=== PATIENT | female | born 1995 | race Asian ===

== ENCOUNTER 2017-09-21 06:00 | Inpatient (IN) | payer OTHER, MEDICAID ==
[2017-09-21] MEDS ORDERED: ceFAZolin 2 GM PREMIX (*) 2 GM/50 ML BAG IVPB ONE (06:51)
[2017-09-21] MEDS ORDERED: Buffered Lidocaine 0.9% SYRIN* 5 ML/SYR SYRINGE INTRADERM ONE (06:58)
[2017-09-21] MEDS ORDERED: Sodium Citrate/Citric Acid* 15 ML UDC PO ONE (06:58)
[2017-09-21] MEDS ORDERED: OXYTOCIN* 10 UNITS/ML 1 ML VIAL ONE (07:45)
[2017-09-21] MEDS ORDERED: Phenylephrine IV* 40 MCG/ML 10 ML SYRINGE ONE (07:45)
[2017-09-21] MEDS ORDERED: Morphine PF AMP (0.5MG/ML)* 5 MG/10 ML AMP ONE (07:46)
[2017-09-21] MEDS ORDERED: Phenylephrine INJ* 10 MG/ML 1 ML VIAL (10 MG) ONE (07:47)
[2017-09-21] MEDS ORDERED: Ondansetron INJ* 2 MG/ML VIAL IV PRN ×2 (08:29→08:31)
[2017-09-21] MEDS ORDERED: fentaNYL* 50 MCG/ML 2 ML VIAL (100 MCG VIAL) IV PRN (08:29)
[2017-09-21] MEDS ORDERED: oxyCODONE/Acetamin 5/325 MG* TAB PO PRN ×2 (08:31)
[2017-09-21] MEDS ORDERED: Naloxone* 0.4 MG/ML 1 ML VIAL IV PRN (08:31)
[2017-09-21] MEDS ORDERED: Ondansetron INJ* 2 MG/ML VIAL ONE (08:39)
[2017-09-21] MEDS ORDERED: fentaNYL* 50 MCG/ML 2 ML VIAL (100 MCG VIAL) ONE (08:55)
[2017-09-21] MEDS ORDERED: Ketorolac INJ* 30 MG/ML 1 ML VIAL ONE (09:02)
[2017-09-21] MEDS ORDERED: Dibucaine 1% 28.35 GM TUBE PR PRN (10:30)
[2017-09-21] MEDS ORDERED: Glycerin ADULT SUPP PR PRN (10:30)
[2017-09-21] MEDS ORDERED: Zolpidem TAB* 5 MG PO PRN (10:30)
[2017-09-21] MEDS ORDERED: Witch Hazel PAD* JAR TOPICAL PRN (10:30)
[2017-09-21] MEDS: Simethicone TAB* 80 MG TAB.CHEW PO SCH ×3 (13:07→22:27)
[2017-09-21] MEDS: Docusate CAP* 100 MG PO SCH ×2 (13:57→22:12)
[2017-09-21] MEDS: Ketorolac INJ* 30 MG/ML 1 ML VIAL IV PRN ×2 (15:20→22:12)
[2017-09-22] MEDS ORDERED: Acetaminophen TAB* 325 MG PO PRN (00:10)
[2017-09-22] MEDS: Ibuprofen TAB* 600 MG PO PRN ×3 (04:02→17:25)
[2017-09-22] MEDS: oxyCODONE/Acetamin 5/325 MG* TAB PO PRN ×5 (04:03→22:39)
[2017-09-22] MEDS: Docusate CAP* 100 MG PO SCH ×3 (08:24→20:20)
[2017-09-22] MEDS: Simethicone TAB* 80 MG TAB.CHEW PO SCH ×4 (08:24→20:19)
[2017-09-22 08:31] LABS: ABS Basophils 0 10^3/ul (0-0.2); ABS Eosinophils 0 10^3/ul (0-0.6); ABS Lymphocytes 1.4 10^3/ul (1.0-4.8); ABS Monocytes 0.7 10^3/ul (0-0.8); ABS Neutrophils 6.8 10^3/ul (1.5-7.7); ABS Nucleated RBC 0 10^3/ul; Eosinophil % 0.1 % (0-6); Hematocrit 31 % (35-47); Hemoglobin 10.5 g/dl (12.0-16.0); Lymphocyte % 15.7 % (25-47); Mean Corpuscular HGB Conc 34 g/dl (31-36); Mean Corpuscular Hemoglobin 31 pg (27-31); Mean Corpuscular Volume 92 fL (80-97); Mean Platelet Volume 8 um3 (7.4-10.4); Nucleated Red Blood Cells % 0; Platelet Count 163 10^3/ul (150-450); Red Blood Count 3.39 10^6/ul (4.0-5.4); Red Cell Distribution Width 14 % (10.5-15)
[2017-09-22] MEDS: Ferrous Gluconate TAB* 324 MG TAB PO SCH (10:15)
--- NOTE | 2017-09-22 13:37 | OP ---
OPERATIVE REPORT: DATE OF OPERATION: 09/21/17 DATE OF : 89 SURGEON: Vani Torres MD DIRECTOR PROFESSIONAL SERVICES: Shani Rubio CNM. ANESTHESIA: Spinal. PRE-OP DIAGNOSIS: Intrauterine gestation at 39 and 5 weeks gestational age. Prior section x2. Breech presentation. Possible uterine anomaly. POST-OP DIAGNOSIS: Intrauterine gestation at 39 and 5 weeks gestational age. Prior section x2. Breech presentation. 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 OPERATIVE PROCEDURE: Repeat section. Extensive lysis of adhesions. ESTIMATED BLOOD LOSS: 800 mL. FLUIDS: Crystalloid. DRAINS: Feliz catheter. SPECIMENS: None. FINDINGS: Female infant. Apgars 9 and 9, weight 7 pounds 2 ounces. Normal appearing placenta. Normal ovaries and tubes. in the right uterus with a second rudimentary uterus on the left side of the uterus. Extensive scarring through all layers of tissue. COUNTS: Were all correct. DESCRIPTION OF PROCEDURE: After informed consent was signed, the patient was taken to the operating room where she was prepped and draped in the dorsal supine position. Feliz catheter was inserted into her bladder. SCDs were placed on her legs. Anesthesia was found to be adequate. A Pfannenstiel skin incision was made with a scalpel and the scar from the prior incision was excised. Incision was then carried down to the underlying layer of fascia with a combination of sharp dissection with Lambert scissors and Bovie cautery. There was extensive scarring to these layers. The fascia was incised on either side of the midline and then incision was extended laterally with sharp dissection with the Lambert scissors. The inferior edge of the fascial incision was grasped with Gregory clamps, tended up, and dissected out with sharp dissection. Then the superior edge of the fascial incision was grasped with Gregory clamps, tended up, and dissected down with sharp dissection. The peritoneum was entered with blunt dissection. The incision was further extended with a combination of sharp and blunt dissection, taking care to avoid injury to bowel or bladder. A bladder flap was then created in the vesicouterine peritoneum with the Metzenbaum scissors. The bladder blade was inserted. A transverse incision was made in the uterus with the scalpel. The uterine incision was extended superior and inferiorly with blunt pressure. Infant's feet were grasped and delivered, followed by the rest of the body. Arms were rotated inwardly and head was delivered in a flexed position. After 30 seconds, the cord was clamped x2 and cut the baby was handed to the circus hand. Cord blood was collected. The uterus was cleared of clots and debris. The uterine incision was then closed with 0-Vicryl in a running locked fashion with the second layer of suture imbricating the first. The abdomen was irrigated, the previously noted findings were seen. Some cautery was used on the uterus and around the edges of the incision to create good hemostasis. The peritoneum was then closed with 3-0 Vicryl in a running unlocked fashion. Good hemostasis was also noted in the next layer and the fascia was closed with 0 Vicryl in a running unlocked fashion. The subcuticular layer was irrigated. Good hemostasis was found and 4 interrupted sutures of 3-0 Chromic were placed. The skin was then placed with 4-0 Monocryl in a running subcuticular fashion. Mastisol and Steri-Strips were placed. The patient was cleaned, moved to the stretcher and taken to the recovery room in stable condition. [id number]/[facility] #: [id number] SPENCER
[2017-09-23] MEDS: Ibuprofen TAB* 600 MG PO PRN ×4 (00:09→23:21)
[2017-09-23] MEDS: oxyCODONE/Acetamin 5/325 MG* TAB PO PRN ×4 (04:17→23:21)
[2017-09-23] MEDS: Docusate CAP* 100 MG PO SCH ×3 (09:20→20:49)
[2017-09-23] MEDS: Simethicone TAB* 80 MG TAB.CHEW PO SCH ×4 (09:20→20:49)
[2017-09-23] MEDS: Ferrous Gluconate TAB* 324 MG TAB PO SCH (10:23)
[2017-09-24] MEDS: Docusate CAP* 100 MG PO SCH (07:44)
[2017-09-24] MEDS: Simethicone TAB* 80 MG TAB.CHEW PO SCH ×2 (07:44→12:38)
[2017-09-24] MEDS: oxyCODONE/Acetamin 5/325 MG* TAB PO PRN ×2 (07:44→12:38)
[2017-09-24] MEDS: Ibuprofen TAB* 600 MG PO PRN (07:45)
[2017-09-24 07:52] VITALS: BP 109/63
== END 2017-09-24 12:40 | disposition home or self-care (01) | DRG 766 ==
LOC: MCHOB 06:00
PROVIDERS: ADMIT Obstetrics & Gynecology; ATTEND Obstetrics & Gynecology
PROC: 4A1HXCZ Monitoring of Products of Conception, Cardiac Rate, External Approach (ICD-10-PCS; 2017-09-21)
PROC: 10D00Z1 Extraction of Products of Conception, Low, Open Approach (ICD-10-PCS; principal; 2017-09-21 07:45)
DX: O34.211 Maternal care for low transverse scar from previous cesarean delivery (principal); N85.8 Other specified noninflammatory disorders of uterus; O32.1XX0 Maternal care for breech presentation, not applicable or unspecified; Z37.0 Single live birth; O75.89 Other specified complications of labor and delivery; Z3A.39 39 weeks gestation of pregnancy; Z88.1 Allergy status to other antibiotic agents; Z91.048 Other nonmedicinal substance allergy status; R51 Headache; O34.03 Maternal care for unspecified congenital malformation of uterus, third trimester; O34.29 Maternal care due to uterine scar from other previous surgery; Q51.818 Other congenital malformations of uterus
CPT/HCPCS: 36415; 85025; A9270-GY; J0690; J1885; J2405; J2590; J3010